=== PATIENT | male | born 1955 | race Caucasian/White ===

== ENCOUNTER 2025-01-31 11:29 | Emergency (ER) | payer MEDICARE ==
[2025-01-31 12:20] VITALS: RESP 20
[2025-01-31 12:27] LABS: Basophils # (A) 0.09 10*3/uL (0.00-0.10); Basophils % (A) 0.8 %; Eosinophils # (A) 0.17 10*3/uL (0.04-0.35); Eosinophils % (A) 1.6 %; HCT 43.7 % (39.6-50.0); HGB 14.7 g/dL (13.0-17.0); Lymphocytes # (A) 1.87 10*3/uL (0.90-5.00); Lymphocytes % (A) 17.3 %; MCH 29.4 pg (27.0-32.0); MCHC 33.6 g/dL (32.0-37.0); MCV 87.4 fL (80.0-97.0); Mean Platelet Volume 9.7 fL (9.5-12.2); Monocytes # (A) 0.62 10*3/uL (0.20-1.00); Monocytes % (A) 5.7 %; Neutrophils # (A) 7.87 10*3/uL (1.80-7.70); Platelet Count 337 10*3/uL (140-440); RDW 14.4 % (11.5-14.5); WBC 10.79 10*3/uL (4.50-10.00)
[2025-01-31 12:50] LABS: ALT 69 U/L (4-49); African American GFR (CKD) 44 (>60 ml/min/1.73 sqM); Albumin 4.3 g/dL (3.5-5.0); Anion Gap 11 mmol/L; Blood Urea Nitrogen 22 mg/dL (9-20); Calcium 9.8 mg/dL (8.4-10.2); Carbon Dioxide 24 mmol/L (22-30); Chloride 104 mmol/L (98-107); Glucose 135 mg/dL (74-99); Non-African American GFR(CKD) 38 (>60 ml/min/1.73 sqM); Sodium 139 mmol/L (137-145); Total Bilirubin 1.1 mg/dL (0.2-1.3); Total Protein 7.6 g/dL (6.3-8.2)
[2025-01-31 12:52] LABS: AST 57 U/L (17-59); Alkaline Phosphatase 79 U/L (38-126); Magnesium 1.9 mg/dL (1.6-2.3); Potassium 5.2 mmol/L (3.5-5.1)
[2025-01-31 12:58] LABS: NT-Pro-B-Type Natriuretic Pept 1200 pg/mL
[2025-01-31 13:01] LABS: INR 2.7 (<1.2); Partial Thromboplastin Time 40.4 sec (22.0-30.0); Prothrombin Time 27.4 sec (10.0-12.5)
[2025-01-31] MEDS: SODIUM CHLORIDE 0.9% 1,000 ML IV ONE (13:24)
[2025-01-31] MEDS: METOPROLOL TARTRATE 5 MG/5 ML VIAL IVP SCH (13:59)
--- NOTE | 2025-01-31 15:44 | ED ---
General Adult HPI - General Chief complaint: Recheck/Abnormal Lab/Rx Stated complaint: Abn labs Source: patient Mode of arrival: ambulatory Limitations: no limitations - History of Present Illness Initial comments: 69-year-old male presents emergency department requesting INR check. Patient was just recently hospitalized and discharged after being treated for PE. He was discharged on the . He has been taking his Coumadin as instructed but has been unable to follow-up to get his INR checked. He denies any bruising or bleeding. No shortness of breath or weakness. He denies any chest pain. No calf pain or swelling. No fevers. No other alleviating, precipitating or modifying factors - Related Data Home Medications Medication Instructions Recorded Confirmed Amiodarone [Cordarone] 200 mg PO DAILY 01/31/25 01/31/25 Clopidogrel [Plavix] 75 mg PO DAILY 01/31/25 01/31/25 Enoxaparin [Lovenox] 90 mg SQ Q12H 01/31/25 01/31/25 Furosemide [Lasix] 40 mg PO DAILY 01/31/25 01/31/25 Losartan [Cozaar] 50 mg PO DAILY 01/31/25 01/31/25 Metoprolol Succinate (ER) [Toprol 50 mg PO DAILY 01/31/25 01/31/25 Xl] Nitric Oxide 1 dose PO DAILY 01/31/25 01/31/25 Spironolactone [Aldactone] 12.5 mg PO DAILY 01/31/25 01/31/25 Statin (Unknown) 1 tab PO DAILY 01/31/25 01/31/25 Warfarin [Coumadin] 7.5 mg PO DAILY 01/31/25 01/31/25 Allergies Allergy/AdvReac Type Severity Reaction Status Date / Time No Known Allergies Allergy Verified 01/31/25 15:09 Review of Systems ROS Statement: Those systems with pertinent positive or pertinent negative responses have been documented in the HPI. ROS Other: All systems not noted in ROS Statement are negative. Past Medical History Past Medical History: Atrial Fibrillation, Hyperlipidemia, Hypertension, Pulmonary Embolus (PE) History of Any Multi-Drug Resistant Organisms: None Reported Past Surgical History: Ablation, Heart Catheterization With Stent, Hernia Repair, Tonsillectomy Past Psychological History: No Psychological Hx Reported Smoking Status: Never smoker Past Alcohol Use History: Occasional Past Drug Use History: None Reported General Exam Limitations: no limitations General appearance: alert, in no apparent distress Head exam: Present: atraumatic, normocephalic, normal inspection Eye exam: Present: normal appearance, PERRL, EOMI. Absent: scleral icterus, conjunctival injection, periorbital swelling ENT exam: Present: normal exam, mucous membranes moist Neck exam: Present: normal inspection. Absent: tenderness, meningismus, lymphadenopathy Respiratory exam: Present: normal lung sounds bilaterally. Absent: respiratory distress, wheezes, rales, rhonchi, stridor Cardiovascular Exam: Present: tachycardia, irregular rhythm, normal heart s ounds. Absent: systolic murmur, diastolic murmur, rubs, gallop, clicks GI/Abdominal exam: Present: soft, normal bowel sounds. Absent: distended, tenderness, guarding, rebound, rigid Extremities exam: Present: normal inspection, full ROM, normal capillary refill. Absent: tenderness, pedal edema, joint swelling, calf tenderness Back exam: Present: normal inspection Neurological exam: Present: alert, oriented X3, CN II-XII intact Psychiatric exam: Present: normal affect, normal mood Skin exam: Present: warm, dry, intact, normal color. Absent: rash Course Vital Signs 01/31/25 01/31/25 01/31/25 11:31 12:19 12:47 Temperature 97.6 F Pulse Rate 50 L 130 H 122 H Respiratory 22 20 20 Rate Blood Pressure 88/66 109/73 89/62 O2 Sat by Pulse 97 97 98 Oximetry 01/31/25 01/31/25 01/31/25 12:53 13:30 14:57 Temperature Pulse Rate 103 H 94 Respiratory 20 20 20 Rate Blood Pressure 106/80 118/72 O2 Sat by Pulse 98 96 Oximetry 01/31/25 01/31/25 15:44 15:45 Temperature 98.7 F 98.8 F Pulse Rate 56 L Respiratory 20 Rate Blood Pressure 107/81 O2 Sat by Pulse 99 Oximetry Medical Decision Making - Medical Decision Making Was pt. sent in by a medical professional or institution ([facility]AME[facility] Hunter, COKE INSPECTOR, urgent care, hospital, or jail...) When possible be specific @ -No Did you speak to anyone other than the patient for history (EMS, parent, family, police, friend...)? What history was obtained from this source @ -No Did you review nursing and triage notes (agree or disagree)? Why? @ -I reviewed and agree with nursing and triage notes Were old charts reviewed (outside hosp., previous admission, EMS record, old EKG, old radiological studies, urgent care reports/EKG's, jail records)? Report findings @ -No old charts were reviewed Differential Diagnosis (chest pain, altered mental status, abdominal pain women, abdominal pain men, vaginal bleeding, weakness, fever, dyspnea, syncope, headache, dizziness, GI bleed, back pain, seizure, CVA, palpatations, mental health, musculoskeletal)? @ -Supratherapeutic INR, subtherapeutic INR EKG interpreted by me (3pts min.). @ -Yes and demonstrates A-fib with a rate of 115. QRS 98. QTc of 431. No acute ST segment elevations or depressions X-rays interpreted by me (1pt min.). @ -None done CT interpreted by me (1pt min.). @ -None done U/S interpreted by me (1pt. min.). @ -None done What testing was considered but not performed or refused? (CT, X-rays, U/S, labs)? Why? @ -None What meds were considered but not given or refused? Why? @ -None Did you discuss the management of the patient with other professionals (professionals i.e. , PA, COKE INSPECTOR, lab, RT, psych nurse, elementary school social worker, trauma counsellor, te acher, bsa officer, catalytic case operator)? Give summary @ -Spoke with the on-call silver lap machine tender and received recommendation to change the patient's medications around Was smoking cessation discussed for >3mins.? @ -No Was critical care preformed (if so, how long)? @ -No Were there social determinants of health that impacted care today? How? (Homelessness, low income, unemployed, alcoholism, drug addiction, transportation, low edu. Level, literacy, decrease access to med. care, skilled nursing, rehab)? @ -Patient does not have transportation to his primary care appointments Was there de-escalation of care discussed even if they declined (Discuss DNR or withdrawal of care, Hospice)? DNR status @ -No What co-morbidities impacted this encounter? (DM, HTN, Smoking, COPD, CAD, Cancer, CVA, ARF, Chemo, Hep., AIDS, mental health diagnosis, sleep apnea, morbid obesity)? @ -PE, A-fib Was patient admitted / discharged? Hospital course, mention meds given and route, prescriptions, significant lab abnormalities, going to OR and other pertinent info. @ -Upon arrival patient seen and evaluated in bed 18. Thorough history and physical exam was performed. IV is established and INR is checked. Results are discussed with patient. My concern is that the patient is in A-fib with a slight rapid rate. I did call the silver lap machine tender on-call and received recommendations on how to change the patient's medications. It is at this time that the patient realized that he has not been taking his amiodarone appropr iately. Patient states that he will start to take this twice a day and see if this alleviates his rapid heart rate. Patient does not want to make any other medication changes at this time. I did recommend that he follow-up with her cardiology office for further management of his A-fib. Return for any new or worsening symptoms. Patient agreeable and he was discharged in stable condition Undiagnosed new problem with uncertain prognosis? @ -No Drug Therapy requiring intensive monitoring for toxicity (Heparin, Nitro, Insulin, Cardizem)? @ -No Were any procedures done? @ -No Diagnosis/symptom? @ -A-fib with controlled ventricular rate, history of PE on Coumadin, therapeutic INR Acute, or Chronic, or Acute on Chronic? @ -Acute Uncomplicated (without systemic symptoms) or Complicated (systemic symptoms)? @ -Complicated Side effects of treatment? @ -Bleeding Exacerbation, Progression, or Severe Exacerbation? @ -No Poses a threat to life or bodily function? How? (Chest pain, USA, CT, pneumonia, PE, COPD, DKA, ARF, appy, cholecystitis, CVA, Diverticulitis, Homicidal, Suicidal, threat to staff... and all critical care pts) @ -No - Lab Data Result diagrams: 01/31/25 12:10 01/31/25 12:18 Lab Results 01/31/25 01/31/25 01/31/25 Range/Units 12:10 12:10 12:18 WBC 10.79 H (4.50-10.00) 10*3/uL RBC 5.00 (4.40-5.60) 10*6/uL Hgb 14.7 (13.0-17.0) g/dL Hct 43.7 (39.6-50.0) % MCV 87.4 (80.0-97.0) fL MCH 29.4 (27.0-32.0) pg MCHC 33.6 (32.0-37.0) g/dL Plt Count 337 (140-440) 10*3/uL MPV 9.7 (9.5-12.2) fL Immature Gran % (Auto) 1.6 % Neutrophils % 73.0 % Lymphocytes % 17.3 % Monocytes % 5.7 % Eosinophils % 1.6 % Basophils % 0.8 % Immature Gran # 0.17 H (0.00-0.04) 10*3/uL Neutrophils # 7.87 H (1.80-7.70) 10*3/uL Lymphocytes # 1.87 (0.90-5.00) 10*3/uL Monocytes # 0.62 (0.20-1.00) 10*3/uL Eosinophils # 0.17 (0.04-0.35) 10*3/uL Basophils # 0.09 (0.00-0.10) 10*3/uL PT 27.4 H (10.0-12.5) sec INR 2.7 H (<1.2) APTT 40.4 H (22.0-30.0) sec Sodium 139 (137-145) mmol/L Potassium 5.2 H (3.5-5.1) mmol/L Chloride 104 (98-107) mmol/L Carbon Dioxide 24 (22-30) mmol/L Anion Gap 11 mmol/L BUN 22 H (9-20) mg/dL Creatinine 1.76 H (0.66-1.25) mg/dL Est GFR (CKD-EPI)AfAm 44 (>60 ml/min/1.73 sqM) Est GFR (CKD-EPI)NonAf 38 (>60 ml/min/1.73 sqM) Glucose 135 H (74-99) mg/dL Calcium 9.8 (8.4-10.2) mg/dL Magnesium 1.9 (1.6-2.3) mg/dL Total Bilirubin 1.1 (0.2-1.3) mg/dL AST 57 (17-59) U/L ALT 69 H (4-49) U/L Alkaline Phosphatase 79 (38-126) U/L Troponin I (0.000-0.034) ng/mL NT-Pro-B Natriuret Pep 1200 pg/mL Total Protein 7.6 (6.3-8.2) g/dL Albumin 4.3 (3.5-5.0) g/dL 01/31/25 Range/Units 12:18 WBC (4.50-10.00) 10*3/uL RBC (4.40-5.60) 10*6/uL Hgb (13.0-17.0) g/dL Hct (39.6-50.0) % MCV (80.0-97.0) fL MCH (27.0-32.0) pg MCHC (32.0-37.0) g/dL Plt Count (140-440) 10*3/uL MPV (9.5-12.2) fL Immature Gran % (Auto) % Neutrophils % % Lymphocytes % % Monocytes % % Eosinophils % % Basophils % % Immature Gran # (0.00-0.04) 10*3/uL Neutrophils # (1.80-7.70) 10*3/uL Lymphocytes # (0.90-5.00) 10*3/uL Monocytes # (0.20-1.00) 10*3/uL Eosinophils # (0.04-0.35) 10*3/uL Basophils # (0.00-0.10) 10*3/uL PT (10.0-12.5) sec INR (<1.2) APTT (22.0-30.0) sec Sodium (137-145) mmol/L Potassium (3.5-5.1) mmol/L Chloride (98-107) mmol/L Carbon Dioxide (22-30) mmol/L Anion Gap mmol/L BUN (9-20) mg/dL Creatinine (0.66-1.25) mg/dL Est GFR (CKD-EPI)AfAm (>60 ml/min/1.73 sqM) Est GFR (CKD-EPI)NonAf (>60 ml/min/1.73 sqM) Glucose (74-99) mg/dL Calcium (8.4-10.2) mg/dL Magnesium (1.6-2.3) mg/dL Total Bilirubin (0.2-1.3) mg/dL AST (17-59) U/L ALT (4-49) U/L Alkaline Phosphatase (38-126) U/L Troponin I 0.017 (0.000-0.034) ng/mL NT-Pro-B Natriuret Pep pg/mL Total Protein (6.3-8.2) g/dL Albumin (3.5-5.0) g/dL Disposition Clinical Impression: Afib, On warfarin therapy Disposition: HOME SELF-CARE Condition: Stable Instructions (If sedation given, give patient instructions): A-fib (Atrial Fibrillation) (ED) Additional Instructions: Take your amiodarone twice daily. If this does not control your heart rate the new recommendations are Double your dose of metoprolol to 100 mg daily and cut your losartan in half to 25 mg daily Follow-up with the cardiology office or with your own silver lap machine tender Return in 1 week for INR check to the outpatient lab Is patient prescribed a controlled substance at d/c from ED?: No Referrals: Rogelio Castillo DO [STAFF PHYSICIAN] - 1-2 days Time of Disposition: 15:44
[2025-01-31 15:47] VITALS: BP 107/81; PULSE 56
[2025-01-31 15:58] VITALS: TEMP 98.8
== END 2025-01-31 15:58 | disposition home or self-care (01) ==
LOC: EC 11:29
DX: I48.91 Unspecified atrial fibrillation (principal); Z79.01 Long term (current) use of anticoagulants
CPT/HCPCS: 36415; 80053; 83735; 83880; 84484; 85025; 85610; 85730; 93005; 99284

== ENCOUNTER → 2025-03-03 | Outpatient (CLI) | payer MEDICARE ==
[2025-03-03 15:03] LABS: Prothrombin Time >130.0 sec (10.0-12.5)
[2025-03-03 15:23] LABS: INR >10.0 (<1.2)
[2025-03-03 15:24] LABS: Partial Thromboplastin Time 62.4 sec (22.0-30.0)
== END | disposition home or self-care (01) ==
LOC: LABWHC1 12:11
PROVIDERS: ATTEND Nurse Practitioner Acute Care
DX: I48.0 Paroxysmal atrial fibrillation (principal)
CPT/HCPCS: 36415; 85610; 85730